=== PATIENT | female | born 1985 | race Caucasian/White ===

== ENCOUNTER 2020-08-24 19:28 | Emergency (ER) | payer OTHER ==
[~2020-08-24] VITALS: Ht 160 cm; Wt 87.0 kg
[2020-08-24] MEDS ORDERED: HALOPERIDOL 5MG TABLET PO ONE (22:30)
[2020-08-24] MEDS ORDERED: LORAZEPAM 1MG TABLET PO ONE (22:30)
[2020-08-25 01:08] LABS: BASOPHILS % 0.4 % (0.0-2.0); EOSINOPHILS % 0.2 % (0.0-5.0); HEMATOCRIT. 42.4 % (36.0-48.0); HEMOGLOBIN. 14.2 g/dL (12.0-16.0); LYMPHOCYTES % 26.9 % (20.0-50.0); MEAN CORPUSCULAR HEMOGLOBIN 30.9 pg (28.0-32.0); MEAN CORPUSCULAR VOLUME 92.2 fL (81.0-99.0); MEAN PLATELET VOLUME 8.5 fl (7.4-10.4); MONOCYTES % 6.6 % (2.0-8.0); NEUTROPHILS % 65.9 % (40.0-76.0); PLATELET 335 x1000/uL (130-400); RED CELL DISTRIBUTION WIDTH 13.2 % (11.6-14.6)
[2020-08-25 01:15] LABS: CHLORIDE 102 mEq/L (98-107)
[2020-08-25 01:16] LABS: HCG SCREEN NEGATIVE
[2020-08-25 01:19] LABS: ETHANOL BLOOD < 10 mg/dL
[2020-08-25 04:42] LABS: CLARITY URINE CLEAR (CLEAR); COLOR URINE YELLOW (YELLOW); KETONES URINE NEGATIVE (NEGATIVE); LEUKOCYTE ESTERASE URINE 2+ (NEGATIVE); NITRITE URINE NEGATIVE (NEGATIVE); OCCULT BLOOD URINE NEGATIVE (NEGATIVE); PROTEIN URINE NEGATIVE (NEGATIVE); SPECIFIC GRAVITY URINE 1.012 (1.005-1.030); UROBILINOGEN URINE 0.2 E.U./dL (0.2-1.0)
[2020-08-25 04:54] LABS: *AMPHETAMINES SCREEN URINE NEGATIVE (NEGATIVE)
[2020-08-25 04:55] LABS: *BARBITURATES SCREEN URINE NEGATIVE (NEGATIVE); *BENZODIAZEPINES SCREEN URINE NEGATIVE (NEGATIVE); *COCAINE SCREEN URINE NEGATIVE (NEGATIVE); CANNABINOID URINE SCREEN NEGATIVE (NEGATIVE); METHADONE URINE SCREEN NEGATIVE (NEGATIVE); OPIATES URINE SCREEN NEGATIVE (NEGATIVE); PHENCYCLIDINE URINE SCREEN NEGATIVE (NEGATIVE)
[2020-08-25] MEDS ORDERED: LORAZEPAM 1MG TABLET PO SCH (05:45)
[2020-08-25] MEDS ORDERED: HALOPERIDOL 5MG TABLET PO SCH (05:45)
[2020-08-25] MEDS ORDERED: LORAZEPAM 1MG TABLET PO ONE (15:30)
[2020-08-25] MEDS ORDERED: DIPHENHYDRAMINE 25MG CAPSULE PO ONE (21:15)
[2020-08-26] MEDS ORDERED: LORAZEPAM 1MG TABLET PO ONE (17:15)
[2020-08-26] MEDS ORDERED: ACETAMINOPHEN 325MG TABLET PO ONE (17:15)
[2020-08-26] MEDS ORDERED: LORAZEPAM 1MG TABLET PO NR (21:45)
[2020-08-27] MEDS ORDERED: LORAZEPAM 1MG TABLET PO PRN ×2 (14:30→22:15)
[2020-08-27] MEDS ORDERED: LORAZEPAM 2MG/ML CPJ IM ONE (22:15)
[2020-08-27] MEDS ORDERED: HALOPERIDOL LACTATE 5MG/ML VIAL IM ONE (22:15)
[2020-08-28] MEDS ORDERED: HYDROXYZINE 25MG TABLET PO ONE (09:00)
[2020-08-28] MEDS ORDERED: QUETIAPINE FUMARATE 50MG TABLET PO SCH ×2 (09:00→21:00)
[2020-08-28] MEDS ORDERED: OXCARBAZEPINE 300MG TABLET PO SCH ×2 (09:00→21:00)
[2020-08-28 09:25] VITALS: BP 128/83
== END 2020-08-28 12:24 | disposition home or self-care (01) ==
LOC: ER 19:28
DX: F32.3 Major depressive disorder, single episode, severe with psychotic features (principal); R45.851 Suicidal ideations; Z75.1 Person awaiting admission to adequate facility elsewhere; R03.0 Elevated blood-pressure reading, without diagnosis of hypertension; Z11.59 Encounter for screening for other viral diseases
CPT/HCPCS: 36415; 71045; 81025; 93005; 99285; J1630; Q0163

== ENCOUNTER 2022-05-26 01:34 | Emergency (ER) | payer MEDICARE, MEDICAID ==
[~2022-05-26] VITALS: Ht 170.2 cm; Wt 59.0 kg
[2022-05-26 02:50] LABS: BASOPHILS % 0.5 % (0.0-2.0); EOSINOPHILS % 0.7 % (0.0-5.0); HEMOGLOBIN. 13.4 g/dL (12.0-16.0); LYMPHOCYTES % 25.6 % (20.0-50.0); MEAN CORPUSCULAR HEMOGLOBIN 31.2 pg (28.0-32.0); MEAN CORPUSCULAR VOLUME 90.7 fL (81.0-99.0); MEAN PLATELET VOLUME 8.5 fl (7.4-10.4); MONOCYTES % 7.5 % (2.0-8.0); NEUTROPHILS % 65.7 % (40.0-76.0); PLATELET 281 x1000/uL (130-400); RED BLOOD CELL COUNT 4.29 mill/uL (4.2-5.4); RED CELL DISTRIBUTION WIDTH 13.7 % (11.6-14.6)
[2022-05-26 02:53] LABS: CHLORIDE 103 mEq/L (98-107)
[2022-05-26 03:00] LABS: ETHANOL BLOOD < 10 mg/dL
[2022-05-26 07:26] LABS: *AMPHETAMINES SCREEN URINE NEGATIVE (NEGATIVE); *BARBITURATES SCREEN URINE NEGATIVE (NEGATIVE); *BENZODIAZEPINES SCREEN URINE NEGATIVE (NEGATIVE); *COCAINE SCREEN URINE NEGATIVE (NEGATIVE); CANNABINOID URINE SCREEN NEGATIVE (NEGATIVE); METHADONE URINE SCREEN NEGATIVE (NEGATIVE); OPIATES URINE SCREEN NEGATIVE (NEGATIVE); PHENCYCLIDINE URINE SCREEN NEGATIVE (NEGATIVE)
[2022-05-26 12:00] VITALS: BP 122/75
== END 2022-05-26 12:11 | disposition home or self-care (01) ==
LOC: ER 02:07
DX: F32.9 Major depressive disorder, single episode, unspecified (principal); R45.850 Homicidal ideations
CPT/HCPCS: 36415; 80048; 80305; 80307; 80320; 80329; 81025; 85025; 99283; G0480

== ENCOUNTER 2022-05-28 08:59 | Emergency (ER) | payer MEDICARE, MEDICAID ==
[~2022-05-28] VITALS: Ht 165.1 cm; Wt 97.2 kg
[2022-05-28 09:47] VITALS: BP 128/81
[2022-05-28] MEDS ORDERED: LORAZEPAM 1MG TABLET PO ONE (10:30)
== END 2022-05-28 10:45 | disposition left against medical advice (07) ==
LOC: ER 09:10
DX: F41.9 Anxiety disorder, unspecified (principal); Z13.9 Encounter for screening, unspecified
CPT/HCPCS: 81025; 99282